=== PATIENT | female | born 1965 | race Caucasian/White ===

== ENCOUNTER → 2016-08-02 | Outpatient (CLI) | payer BC ==
[~2016-08-02] MED LIST: ALOE25CA4 PO; ANAS1TAB19 PO; ATEN25TA PO; BIOT1CAP8 PO; BIOT1TAB5 PO; CINN1CAP2 PO; CRAN1CAP6 PO; FLUT50SP37 NAE; FLUTICASONE PROP; GLUCTAB7 PO; LEVO100T7 PO; LISI-789 PO; LUTE6TAB PO; Levoxyl PO; MAGN400T6 PO; MULT-506 PO; MULT-655 PO; PROB1TAB16 PO; RESV100C PO; SPIR50TA2 PO; TAMO20TA9 PO; [UNRECOGNIZED DRUG - OTHER] PO; [UNRECOGNIZED DRUG - OTHER] PO; [UNRECOGNIZED DRUG - OTHER] PO
[2016-08-02 14:51] VITALS: BP 110/78; PULSE 68; TEMP 37.1; O2SAT 96
--- NOTE | 2016-08-02 16:09 | Radiation Oncology Follow-Up ---
Radiation Oncology Follow-Up Date of Visit August 02, 2016. (Melia Gregory PA-C) Reason For Visit One-month follow-up and cancer survivorship care plan (Melia Gregory PA-C) Radiation Completion Date 07/02/16 (Melia Gregory PA-C) Diagnosis (1) DCIS (ductal carcinoma in situ) of breast Onset Date: 02/10/2016 Stage: 0 Permanent Comment: Status post abnormal right breast mammogram 01/20/2016 Status post stereotactic guided biopsies 02/10/2016 2 lesions were biopsied and positive for DCIS Estrogen receptor positive and progesterone receptor positive Status post lumpectomies and sentinel lymph node biopsy 02/15/2016 Multifocal DCIS Stage pTis [id number] Status post completion of radiation therapy 07/02/2016 received 6640 cGy Last Edited By: Melia Gregory on Jul 12, 2016 10:33 (Melia Gregory PA-C) History of Present Illness Ms. Martinez is a 51-year-old postmenopausal female who initially presented with an abnormal mammogram on 01/20/2016 which revealed a cluster of calcifications in the right breast. The patient was brought back on 02/01/2016 for a unilateral right diagnostic mammogram and ultrasound which revealed a new irregular 8.7 mm cluster of pleomorphic an amorphous cluster of microcalcifications in the 9:00 middle one third of the right breast and a smaller appearing cluster of microcalcifications just inferior and medial to the first measuring 3.6 mm. At the time of the procedure and studies, the radiologist didn't note the patient did have a raised lesion along the scar at the 10:00 right breast and was referred to a shipping technician appropriately. The patient underwent stereotactic guided biopsies of the 2 lesions in the right breast on 02/10/2016. The larger right lesion was positive for ductal carcinoma in situ that was high-grade with comedonecrosis and was estrogen receptor positive and progesterone receptor positive. The smaller right breast lesion was also positive for ductal carcinoma in situ that was high-grade with comedonecrosis and was also estrogen receptor positive and progesterone receptor positive. The patient was referred The patient was referred to Dr. Kellee Monteiro who did discuss treatment options including a mastectomy and lumpectomy followed by adjuvant radiation therapy. The patient was also seen by reconstructive surgeon for consideration of bilateral breast reduction surgery however she ultimately declined this procedure. The patient elected for a lumpectomy and sentinel lymph node biopsy for both breast lesions in the right breast. The patient underwent 2 lumpectomies and sentinel lymph node biopsy of the right breast on 03/16/[address] Kellee Monteiro. Pathology revealed multifocal ductal carcinoma in situ that was high-grade with comedonecrosis. Margins were negative (full pathology report below). The sentinel lymph nodes were also negative. The patient has been seen in consultation by Dr. Jake Mace from medical oncology who has recommended consideration of anti-hormonal therapy. We are now seeing the patient in consultation discussed role of adjuvant radiation therapy. Patient was treated with conventional radiation therapy. Treatment was completed 07/02/2016. She received 6640 cGy. Overall, the patient is to well and has healed up well from surgery. Of note, the patient did have a diagnosis of low-grade and early stage endometrial cancer that was treated with a SHEMAR/BSO and no adjuvant therapy. (Melia Gregory PA-C) Interim History She's been doing well over this past month. The irritation of the skin has steadily improved. This mainly healed the 2 weeks following the completion of treatment. She has no occasional discomfort of the breast. She describes it as a "twinge". She has noted no masses or tenderness and no change of the axilla. She's had no swelling of her arm. She has seen Dr. Monteiro and is scheduled for mammography August 23. She has started tamoxifen and is tolerating this well. Following the completion of treatment she had symptoms of upper respiratory infection. These have steadily improved. The swelling of the breast that occurred during treatment has continued to improve as well as the darkness of the skin. (Melia Gregory PA-C) Allergies Coded Allergies: No Known Drug Allergy (Verified Allergy, Unknown, None , 04/17/16) Home Medications Scheduled Aloe Vera (Aloe Vera), 1 CAP PO DAILY Atenolol (Tenormin), 12.5 MG PO DAILY Biotin (Biotin), 4-8 TABS PO DAILY Cinnamon (Cinnamon), 350 MG PO DAILY Cranberry (Vaccinium Macrocarp (Cranberry), 1 CAP PO DAILY Udenijschqx-Uvydhuzmymv-Fua C- (Glucosamine Chondroitin), 1 TAB PO DAILY Lutein-Zeaxanthin (Lutein W/Zeaxanthin), 1 TAB PO DAILY Magnesium Oxide (Mag-Ox), 250 MG PO DAILY Multiple Vitamins W/ Minerals (Antioxidant), 1 CAP PO Q2D Multivitamin (Multivitamin), 1 TAB PO DAILY Probiotic Product (Probiotic), 1 TAB PO Evening Resveratrol (Resveratrol), 1 CAP PO DAILY Spironolactone (Aldactone), 50 MG PO BID Tamoxifen (Nolvadex), 20 MG PO DAILY [Circulation support], 2 TABS PO DAILY [Immune factors], 1 CAP PO DAILY [Levoxyl ], 100 MCG PO DAILY Scheduled PRN [Digest assure], 1 TAB PO DAILY PRN for Dyspepsia [Fluticasone Prop], 50 MCG NA BID PRN for allergies Review of Systems Gastrointestinal: Symptoms: WNL Oral: Symptoms: No Problems Respiratory: Symptoms: WNL Urinary: Symptoms: WNL Skin: Other Skin Symptoms: Skin on right breast more urbina in color w/pinkness near areola;intact Breast: Right Upper Arm Measurement: 43.5 Right Mid Arm Measurement: 31.5 Right Wrist Measurement: 18.0 Left Upper Arm Measurement: 45.0 Left Mid Arm Measurement: 33.0 Left Wrist Measurement: 18.3 Arm Dominence: Right Additional Notes: She completed a distress management report and answered "no" to all questions. (Melia Gregory PA-C) Physical Exam Vital Signs Date Time Temp Pulse Resp B/P Pulse Ox O2 Delivery O2 Flow Rate FiO2 08/02/16 14:51 37.1 68 12 110/78 96 Fatigue: None General Appearance: no apparent distress Eyes: normal inspection, EOMI ENT: normal ENT inspection, hearing grossly normal Neck: no adenopathy, thyroid normal Respiratory/Chest: lungs clear, no respiratory distress, no accessory muscle use Breast: Breast examination reveals well-healed incisions of the right breast. There is resolving hyperpigmentation. Resolving erythema. The edema has greatly improved. There are no masses or tenderness and no axillary adenopathy. Using the Kap[place]i score cosmesis she has a a fair outcome currently. There are no skin retractions or nipple changes. The left breast showed no masses or tenderness and no axillary adenopathy. Cardiovascular: regular rate, rhythm, no gallop, no murmur Extremities: no pedal edema Neurologic/Psychiatric: no motor/sensory deficits, alert, normal mood/affect Skin: warm/dry (Melia Gregory PA-C) Assessment & Plan Plan: Continue regular follow-up with Dr. Monteiro, Dr. Mace, and her primary care provider. She continues on the tamoxifen. Mammography is scheduled for August 23. She has a follow-up appointment scheduled with Dr. Monteiro. She'll continue to use moisturizers to the skin. Today we completed a cancer survivorship care plan. A copy of the document was given to the patient. We discussed that the hyperpigmentation and mild edema will continue to improve. She was seen and examined by Dr. Grace. We asked her to return to our office in 6 months. She may call if she has any questions or concerns in the interim. (Melia Gregory PA-C) I agree with note created by Melia Gregory PA-C. I reviewed the patient's chart and information with her. I have examined and evaluated the patient. I reviewed relevant clinical information and answered the patient's and/or family' s questions. (Veeral. Grace MD) Total Time In Follow-Up I spent 20 minutes speaking to the patient and performing examination. I spent 20 minutes reviewing information, preparing the survivorship document, and completing this note. (Melia Gregory PA-C) I spent 15 minutes examining and counseling the patient. (Veeral. Grace MD) Copy To Kellee Monteiro MD; Jake Mace MD; Shawna Malone Problem Qualifiers (1) DCIS (ductal carcinoma in situ) of breast: Laterality: right Qualified Codes: D05.11 - Intraductal carcinoma in situ of right breast
== END | disposition home or self-care (01) ==
LOC: C.ONC 14:48
PROVIDERS: ATTEND Physician Assistant Medical
DX: Z08 Encounter for follow-up examination after completed treatment for malignant neoplasm (principal); Z92.3 Personal history of irradiation; Z85.3 Personal history of malignant neoplasm of breast

== ENCOUNTER → 2016-08-23 | Outpatient (CLI) | payer BC ==
--- NOTE | 2016-08-23 12:55 | MAMMOGRAPHY REPORT ---
UNILATERAL RIGHT DIGITAL DIAGNOSTIC MAMMOGRAM TOMOSYNTHESIS WITH CAD: 08/23/2016 CLINICAL HISTORY: 51-year-old woman with a personal history of right breast DCIS status post lumpecto my and radiation. She presents for first follow-up in the right breast after treatment to establish a baseline. TECHNIQUE: Right CC and MLO 2-D digital and tomosynthesis images, repeat 2-D right MLO, right XCCL a nd spot magnification right CC and ML views were obtained. Current study was also evaluated with a C [employer] CMOS Sensorsuter Aided Detection (CAD) system. COMPARISON: Comparison is made to exams dated: 02/10/2016 stereotactic biopsy, 02/10/2016 stereotact ic biopsy, 02/10/2016 mammogram, 02/01/2016 ultrasound, 02/01/2016 mammogram, and 01/20/2016 mammogram - [facility]. BREAST COMPOSITION: There are scattered areas of fibroglandular density in the right breast. FINDINGS: There is mild diffuse skin thickening and trabecular edema of the right breast. Focal asy mmetry and expected architectural distortion in the upper outer middle one third of the right breast, at the site of prior lumpectomy. There are stable circumscribed subcentimeter masses in the upper o uter posterior right breast, unchanged on prior exams dating back to at least 2008, most likely intra mammary lymph nodes. There are scattered round benign-appearing microcalcifications throughout the r ight breast, which are stable compared to prior mammograms. No new suspicious grouping or cluster of microcalcifications are identified. No suspicious mass or unexpected architectural distortion. IMPRESSION: ACR-BI-RADS CATEGORY 3: PROBABLY BENIGN Expected post treatment changes in the right breast, without definite mammographic evidence of malign jacqueline. Recommend a short interval follow-up (6 months) diagnostic right mammogram and repeat spot mag nification views to ensure stability after treatment. Annual left mammography will be due at that ti ia. These results and recommendations were discussed with the patient at the time of the exam. Approximately 10% of breast cancers are not detected with mammography. A negative mammographic report should not delay biopsy if a clinically suggestive mass is present. Luisa Hameed M.D. ay/:08/23/2016 09:46:49 [employer]ocket Engine Component Mechanic: Carly Jiang RT(R)(M), [facility] letter sent: Follow Up Recommended 3 BI-RADS Code: ACR-BI-RADS Category 3: Probably Benign
== END | disposition home or self-care (01) ==
LOC: C.MAMM 09:14
PROVIDERS: ATTEND Surgery
DX: D05.11 Intraductal carcinoma in situ of right breast (principal); Z92.3 Personal history of irradiation

== ENCOUNTER → 2016-11-02 | Outpatient (CLI) | payer BC ==
[~2016-11-02] MED LIST changes: +TAMO20TA47 PO; -TAMO20TA9 PO
--- NOTE | 2016-11-08 14:09 | CODING QUERY MEDICAL NECESSITY ---
CQSUPPORTING DIAGNOSIS NEEDED A supporting diagnosis is required for the test/procedure performed on this patient in order for us to be reimbursed by the patient's insurance. Please provide a supporting diagnosis for the following test/procedure listed below next to the test name along with your signature. *If there is no additional diagnosis for this patient that would support the following test/procedure please document that below next to the test/procedure. Test(s)/Procedure(s) that require a supporting diagnosis: DOS 11/02/16 VITAMIN D TEST Provider Signature: Date: Thank you Aileen Lewis Health Information Management Once completed, please kindly fax back to [phone] For questions please call [phone]
== END | disposition home or self-care (01) ==
LOC: C.LAB1850 11:30
PROVIDERS: ATTEND Dermatology
DX: L65.9 Nonscarring hair loss, unspecified (principal)

== ENCOUNTER → 2016-11-16 | Outpatient (CLI) | payer BC ==
--- NOTE | 2016-11-16 15:44 | DIAGNOSTIC IMAGING REPORT ---
BILATERAL LOWER EXTREMITY VENOUS DOPPLER CLINICAL HISTORY: Bilateral leg pain and cramps. COMPARISON STUDY: No previous studies for comparison. TECHNIQUE: Sonography of the deep venous system of the bilateral lower extremities was performed. Compression and augmentation were evaluated. FINDINGS: The bilateral common femoral, superficial femoral and popliteal veins were compressible. Augmentation was normal. Flow was shown within the deep calf vessels. IMPRESSION: No evidence of deep venous thrombus within the bilateral lower extremities. Electronically signed by: Killian Ervin M.D. 11/16/2016 3:42 PM Dictated Date/Time: 11/16/2016 3:42 PM
== END | disposition home or self-care (01) ==
LOC: C.ULTR 14:35
PROVIDERS: ATTEND Internal Medicine Hematology & Oncology
DX: D05.11 Intraductal carcinoma in situ of right breast (principal); R25.2 Cramp and spasm

== ENCOUNTER → 2017-01-07 | Day surgery (SDC) | payer BC ==
[2016-12-28 10:21] VITALS: Ht 160 cm; Wt 122.7 kg
[~2017-01-07] VITALS: Ht 160 cm; Wt 122.7 kg
[~2017-01-07] MED LIST changes: -ALOE25CA4 PO; -ATEN25TA PO; +ATROPINE SULFATE 0.1 MG/ML 5ML SYR IV PRN; -BIOT1TAB5 PO; +EpHEDrine SULFATE INJ 50 MG/ML AMP IV PRN; -FLUTICASONE PROP; +LABETALOL HCL IV 5 MG/ML 20ML IV ONE; +LIDOCAINE HCL 2% 2 ML VIAL (20MG/ML) ONE; -Levoxyl PO; -PROB1TAB16 PO; +PROPOFOL IV EMULSION 10 MG/ML 20 ML VIAL IV ONE; -RESV100C PO; +SODIUM CHLORIDE 0.9% 500ML 500 ML IV ONE; -TAMO20TA47 PO
--- NOTE | 2017-01-07 12:59 | Endo History and Physical ---
History & Physical Date of Service: Jan 07, 2017. Chief Complaint: Family hx rectal CA Referring Physician: Dr Kayy So History of Present Illness screening colon Past Surgical History Hx Cardiac Surgery: No Hx Internal Defibrillator: No Hx Pacemaker: No Hx Abdominal Surgery: No Hx of Implantable Prosthesis: No Hx Post-Op Nausea and Vomiting: No Hx Cancer Surgery: Yes (RT LUMPECTOMY, TAHBSO) Hx Thoracic Surgery: No Hx Orthopedic: No Hx Urinary Tract Surgery: No Family History Colon CA Social History Smoking Status: Never Smoker Hx Substance Use: No Hx Alcohol Use: Yes (RARELY) Allergies Coded Allergies: NO KNOWN DRUG ALLERGIES (Verified Allergy, Unknown, ., 01/07/17) Current Medications Reported Home Medications Medications Dose Route/Sig Max Daily Dose Days Date Category Clarispray (Fluticasone Propionate (Nasal)) 50 Mcg/Act Spr 2 [place] ARETHA BID PRN 12/28/16 Reported Aldactone (Spironolactone) 50 Mg Tab 50 Mg PO QAM 12/28/16 Reported Arimidex (Anastrozole) 1 Mg Tab 1 Mg PO QAM 12/28/16 Reported Levothyroxine Sodium 100 Mcg Tab 1 Tab PO QAM 90 12/28/16 Reported Biotin 1 Mg Cap 1 Cap PO BID 12/28/16 Reported Zestril (Lisinopril) 2.5 Mg Tab 1 Tab PO QAM 12/28/16 Reported Lutein W/Zeaxanthin (Lutein-Zeaxanthin) 1 Tab Tab 1 Tab PO DAILY 08/02/16 Reported [Immune factors] 1 Cap PO DAILY 08/02/16 Reported [Digest assure] 1 Tab PO DAILY PRN 08/02/16 Reported [Circulation support] 2 Tabs PO DAILY 08/02/16 Reported Glucosamine Chondroitin (Kvvxhngcrqm-Tdzpzhtdcqi-Nwb C-) 1 Tab Tab 1 Tab PO DAILY 08/02/16 Reported Antioxidant (Multiple Vitamins W/ Minerals) 1 Cap Cap 1 Cap PO Q2D 06/25/16 Reported Cinnamon 500 Mg Cap 350 Mg PO DAILY 04/17/16 Reported Cranberry (Cranberry (Vaccinium Macrocarp) 250 Mg Cap 1 Cap PO DAILY 04/17/16 Reported Mag-Ox (Magnesium Oxide) 400 Mg Tab 250 Mg PO DAILY 04/17/16 Reported Multivitamin (Multivitamins) Tab 1 Tab PO DAILY 04/17/16 Reported Vital Signs Weight (Kilograms): 122.73 Height (Feet): 5 Height (Inches): 3 Date Time Temp Pulse Resp B/P (MAP) Pulse Ox O2 Delivery O2 Flow Rate FiO2 01/07/17 12:35 37.3 98 20 230/94 (139) 97 Room Air 242/102 (148) Physical Exam General Appearance: WD/WN, no apparent distress Respiratory/Chest: Auscultation: breath sounds normal Cardiovascular: Heart Auscultation: RRR Abdomen: Bowel Sounds: normal Inspection & Palpation: soft, non-distended, no tenderness, guarding & rebound +FH CRC Assessment and Plan colonscopy for screening
--- NOTE | 2017-01-07 13:42 | GI REPORT ---
Procedure Date: 01/07/2017 12:51 PM Procedure: Colonoscopy Indications: Family history of colon cancer in multiple first-degree relatives Medicines: Propofol per Anesthesia Complications: No immediate complications. Estimated blood loss: Minimal. Estimated Blood Loss: Estimated blood loss was minimal. Procedure: Pre-Anesthesia Assessment: - Prior to the procedure, a History and Physical was performed, and patient medications and allergies were reviewed. The patient's tolerance of previous anesthesia was also reviewed. The risks and benefits of the procedure and the sedation options and risks were discussed with the patient. All questions were answered, and informed consent was obtained. Prior Anticoagulants: The patient has taken no previous anticoagulant or antiplatelet agents. ASA Grade Assessment: III - A patient with severe systemic disease. After reviewing the risks and benefits, the patient was deemed in satisfactory condition to undergo the procedure. After I obtained informed consent, the scope was passed under direct vision. Throughout the procedure, the patient's blood pressure, pulse, and oxygen saturations were monitored continuously. The scope was introduced through the anus and advanced to the cecum, identified by appendiceal orifice and ileocecal valve. The colonoscopy was performed without difficulty. The patient tolerated the procedure well. The quality of the bowel preparation was good. Findings: The perianal and digital rectal examinations were normal. Pertinent negatives include normal sphincter tone, no palpable rectal lesions and no anal lesion or abnormality was detected. A 2 mm polyp was found in the ascending colon. The polyp was sessile. The polyp was removed with a cold biopsy forceps. Resection and retrieval were complete. Estimated blood loss was minimal. Verification of patient identification for the specimen was done by the physician and sterile instrument technician using the patient's name and medical record number. A few small-mouthed diverticula were found in the sigmoid colon. The exam was otherwise without abnormality. The retroflexed view of the distal rectum and anal verge was normal and showed no anal or rectal abnormalities. Impression: - One 2 mm polyp in the ascending colon, removed with a cold biopsy forceps. Resected and retrieved. - Diverticulosis in the sigmoid colon. - The examination was otherwise normal. - The distal rectum and anal verge are normal on retroflexion view. Recommendation: - Discharge patient to home (ambulatory). - Resume regular diet. - Continue present medications. - Await pathology results. - Repeat colonoscopy for surveillance based on pathology results. - Return to referring physician as previously scheduled. MD Ismael Ronquillo, MD 01/07/2017 1:42:00 PM This report has been signed electronically. Note Initiated On: 01/07/2017 12:51 PM I attest to the content of the Intraoperative Record and orders documented therein, exceptions below
--- NOTE | 2017-01-07 13:47 | Discharge Instructions ---
Endoscopy Patient Instructions Date / Procedure(s) Performed Jan 07, 2017. Colonoscopy Allergy Information Coded Allergies: NO KNOWN DRUG ALLERGIES (Verified Allergy, Unknown, ., 01/07/17) Discharge Date / Findings Jan 07, 2017. small polyp removed; diverticulosis sigmoid Medication Instructions Restart Stopped Medication(s): Reported Home Medications Medications Dose Route/Sig Max Daily Dose Days Date Category Clarispray (Fluticasone Propionate (Nasal)) 50 Mcg/Act Spr 2 [place] ARETHA BID PRN 12/28/16 Reported Aldactone (Spironolactone) 50 Mg Tab 50 Mg PO QAM 12/28/16 Reported Arimidex (Anastrozole) 1 Mg Tab 1 Mg PO QAM 12/28/16 Reported Levothyroxine Sodium 100 Mcg Tab 1 Tab PO QAM 90 12/28/16 Reported Biotin 1 Mg Cap 1 Cap PO BID 12/28/16 Reported Zestril (Lisinopril) 2.5 Mg Tab 1 Tab PO QAM 12/28/16 Reported Lutein W/Zeaxanthin (Lutein-Zeaxanthin) 1 Tab Tab 1 Tab PO DAILY 08/02/16 Reported [Immune factors] 1 Cap PO DAILY 08/02/16 Reported [Digest assure] 1 Tab PO DAILY PRN 08/02/16 Reported [Circulation support] 2 Tabs PO DAILY 08/02/16 Reported Glucosamine Chondroitin (Bouxszurtkp-Oveshngjfjr-Bdq C-) 1 Tab Tab 1 Tab PO DAILY 08/02/16 Reported Antioxidant (Multiple Vitamins W/ Minerals) 1 Cap Cap 1 Cap PO Q2D 06/25/16 Reported Cinnamon 500 Mg Cap 350 Mg PO DAILY 04/17/16 Reported Cranberry (Cranberry (Vaccinium Macrocarp) 250 Mg Cap 1 Cap PO DAILY 04/17/16 Reported Mag-Ox (Magnesium Oxide) 400 Mg Tab 250 Mg PO DAILY 04/17/16 Reported Multivitamin (Multivitamins) Tab 1 Tab PO DAILY 04/17/16 Reported Reported Home Medications Medications Dose Route/Sig Max Daily Dose Days Date Category Clarispray (Fluticasone Propionate (Nasal)) 50 Mcg/Act Spr 2 [place] ARETHA BID PRN 12/28/16 Reported Aldactone (Spironolactone) 50 Mg Tab 50 Mg PO QAM 12/28/16 Reported Arimidex (Anastrozole) 1 Mg Tab 1 Mg PO QAM 12/28/16 Reported Levothyroxine Sodium 100 Mcg Tab 1 Tab PO QAM 90 12/28/16 Reported Biotin 1 Mg Cap 1 Cap PO BID 12/28/16 Reported Zestril (Lisinopril) 2.5 Mg Tab 1 Tab PO QAM 12/28/16 Reported Lutein W/Zeaxanthin (Lutein-Zeaxanthin) 1 Tab Tab 1 Tab PO DAILY 08/02/16 Reported [Immune factors] 1 Cap PO DAILY 08/02/16 Reported [Digest assure] 1 Tab PO DAILY PRN 08/02/16 Reported [Circulation support] 2 Tabs PO DAILY 08/02/16 Reported Glucosamine Chondroitin (Sqbaxiuvyax-Iahavacgsjm-Kbs C-) 1 Tab Tab 1 Tab PO DAILY 08/02/16 Reported Antioxidant (Multiple Vitamins W/ Minerals) 1 Cap Cap 1 Cap PO Q2D 06/25/16 Reported Cinnamon 500 Mg Cap 350 Mg PO DAILY 04/17/16 Reported Cranberry (Cranberry (Vaccinium Macrocarp) 250 Mg Cap 1 Cap PO DAILY 04/17/16 Reported Mag-Ox (Magnesium Oxide) 400 Mg Tab 250 Mg PO DAILY 04/17/16 Reported Multivitamin (Multivitamins) Tab 1 Tab PO DAILY 04/17/16 Reported Provider Instructions Activity Restrictions - No exercising or heavy lifting for 24 hours. - Do not drink alcohol the day of the procedure. - Do not drive a car or operate machinery until the day after the procedure. - Do not make any important decisions or sign important papers in 24 hours after the procedure. Following Day: - Return to full activity which may include returning to work/school. Diet Start your diet with liquids and light foods (jello, soup, juice, toast). Then eat your usual diet if not nauseated. Treatment For Common After Affects For mild abdominal pain, bloating, or excessive gas: - Rest - Eat lightly - Lie on right side Follow-Up Information Follow-up with Dr Kayy So as scheduled Anesthesia Information What You Should Know You have had a procedure that required some medicine to reduce anxiety and discomfort. This treatment is called moderate sedation. After receiving the treatment, you may be sleepy, but you will be able to breathe on your own. The effects of the treatment may last for several hours. Follow these instructions along with Activity/Diet recommendations noted above: * Do NOT do anything where dizziness or clumsiness would be dangerous. * Rest quietly at home today, then you can be up and about tomorrow. * Have a responsible person stay with you the rest of today. * You may have had an I.V. today. If so, you may take the dressing off later today. Recommendations Call your doctor if: * Trouble breathing * Continuous vomiting for more than 24 hours * Temperature above 101 degrees * Severe abdominal pain or bloating * Pain not relieved by pain medicine ordered * There is increased drainage or redness from any incision * A large amount of rectal bleeding greater than 2-3 tablespoons. (If you had a polyp/s removed or have hemorrhoids, a small amount of blood - from the rectum is to be expected.) * You have any unanswered questions or concerns. IN THE EVENT OF A SERIOUS EMERGENCY, GO TO THE NEAREST EMERGENCY ROOM Your discharge instructions were prepared by provider Ismael Barnett. Patient Instructions Signature Page Odalys Martinez Patient (or Guardian) Signature/Date: I have read and understand the instructions given to me by my caregivers. Caregiver/RN/Doctor Signature/Date: The above-named patient and/or guardian has received patient instructions on this date. + Original Patient Signature Page (only) stays with chart. Please make copy for patient.
[2017-01-07 14:00] VITALS: BP 154/96; PULSE 67; O2SAT 97
--- NOTE | 2017-01-07 14:10 | Anesthesiology Progress Note ---
Anesthesia Post Op Note Date & Time Jan 07, 2017 at 14:10 Vital Signs Pain Intensity: 0 Vital Signs Past 12 Hours Date Time Temp Pulse Resp B/P (MAP) Pulse Ox O2 Delivery O2 Flow Rate FiO2 01/07/17 14:00 67 18 154/96 (115) 97 Room Air 01/07/17 13:45 63 18 145/92 (109) 97 Room Air 01/07/17 13:30 69 18 124/83 (97) 97 Room Air 01/07/17 12:35 37.3 98 20 230/94 (139) 97 Room Air 242/102 (148) Notes Mental Status: alert / awake / arousable, participated in evaluation Pt Amnestic to Procedure: Yes Nausea / Vomiting: adequately controlled Pain: adequately controlled Airway Patency, RR, SpO2: stable & adequate BP & HR: stable & adequate Hydration State: stable & adequate Anesthetic Complications: no major complications apparent
== END | disposition home or self-care (01) ==
LOC: C.GI 12:12
PROVIDERS: ATTEND Internal Medicine Gastroenterology
DX: Z12.11 Encounter for screening for malignant neoplasm of colon (principal); D12.2 Benign neoplasm of ascending colon; K57.30 Diverticulosis of large intestine without perforation or abscess without bleeding; Z80.0 Family history of malignant neoplasm of digestive organs; Z79.899 Other long term (current) drug therapy

== ENCOUNTER → 2017-02-05 | Outpatient (CLI) | payer BC ==
[~2017-02-05] MED LIST changes: -ATROPINE SULFATE 0.1 MG/ML 5ML SYR IV PRN; -EpHEDrine SULFATE INJ 50 MG/ML AMP IV PRN; -LABETALOL HCL IV 5 MG/ML 20ML IV ONE; -LIDOCAINE HCL 2% 2 ML VIAL (20MG/ML) ONE; -PROPOFOL IV EMULSION 10 MG/ML 20 ML VIAL IV ONE; -SODIUM CHLORIDE 0.9% 500ML 500 ML IV ONE
[2017-02-05 14:56] VITALS: BP 148/80; PULSE 96; TEMP 36.7; O2SAT 99
--- NOTE | 2017-02-05 15:49 | Radiation Oncology Follow-Up ---
Radiation Oncology Follow-Up Date of Visit Feb 05, 2017. Reason For Visit 6 month follow-up Radiation Completion Date 07/02/16 Diagnosis (1) DCIS (ductal carcinoma in situ) of breast Onset Date: 02/10/2016 Stage: 0 Permanent Comment: Status post abnormal right breast mammogram 01/20/2016 Status post stereotactic guided biopsies 02/10/2016 2 lesions were biopsied and positive for DCIS Estrogen receptor positive and progesterone receptor positive Status post lumpectomies and sentinel lymph node biopsy 02/15/2016 Multifocal DCIS Stage pTis [id number] Status post completion of radiation therapy 07/02/2016 received 6640 cGy Last Edited By: Melia Gregory on Jul 12, 2016 10:33 History of Present Illness Ms. Martinez is postmenopausal female who initially presented with an abnormal mammogram on 01/20/2016 which revealed a cluster of calcifications in the right breast. The patient was brought back on 02/01/2016 for a unilateral right diagnostic mammogram and ultrasound which revealed a new irregular 8.7 mm cluster of pleomorphic an amorphous cluster of microcalcifications in the 9:00 middle one third of the right breast and a smaller appearing cluster of microcalcifications just inferior and medial to the first measuring 3.6 mm. At the time of the procedure and studies, the radiologist didn't note the patient did have a raised lesion along the scar at the 10:00 right breast and was referred to a drapery inspector appropriately. The patient underwent stereotactic guided biopsies of the 2 lesions in the right breast on 02/10/2016. The larger right lesion was positive for ductal carcinoma in situ that was high- grade with comedonecrosis and was estrogen receptor positive and progesterone receptor positive. The smaller right breast lesion was also positive for ductal carcinoma in situ that was high-grade with comedonecrosis and was also estrogen receptor positive and progesterone receptor positive. The patient was referred The patient was referred to Dr. Kellee Monteiro who did discuss treatment options including a mastectomy and lumpectomy followed by adjuvant radiation therapy. The patient was also seen by reconstructive surgeon for consideration of bilateral breast reduction surgery however she ultimately declined this procedure. The patient elected for a lumpectomy and sentinel lymph node biopsy for both breast lesions in the right breast. The patient underwent 2 lumpectomies and sentinel lymph node biopsy of the right breast on 03/16/[address] Kellee Monteiro. Pathology revealed multifocal ductal carcinoma in situ that was high-grade with comedonecrosis. Margins were negative (full pathology report below). The sentinel lymph nodes were also negative. The patient has been seen in consultation by Dr. Jake Mace from medical oncology who has recommended consideration of anti-hormonal therapy. We are now seeing the patient in consultation discussed role of adjuvant radiation therapy. Patient was treated with conventional radiation therapy. Treatment was completed 07/02/2016. She received 6640 cGy. Overall, the patient is to well and has healed up well from surgery. Of note, the patient did have a diagnosis of low-grade and early stage endometrial cancer that was treated with a SHEMAR/BSO and no adjuvant therapy. Interim History She's been doing well over the past 6 months. The discoloration of the breast has steadily improved. She also feels there is less swelling over time. She has very minimal occasional twinge in the breast. She continues to use skin moisturizer. She denies a feeling of heaviness of the breast. She has noticed no masses or axillary adenopathy. She has noticed no swelling of her arm. She has been followed closely by medical oncology. She was prescribed tamoxifen. She unfortunately had multiple side effects including leg cramping, hair loss, feeling of warmth, insomnia, and constipation. Because of the cramping in the calves she did have an ultrasound to rule out a DVT. That was negative for findings. She also had joint pain and discomfort. She stopped the medication for a 2 month time. She did see Dr. Mace in started anastrozole earlier this summer. She's been able to tolerate the medicine and she is continued to take it. Allergies Coded Allergies: NO KNOWN DRUG ALLERGIES (Verified Allergy, Unknown, ., 01/07/17) Home Medications Scheduled Anastrozole (Arimidex), 1 MG PO QAM Biotin (Biotin), 1 CAP PO BID Cinnamon (Cinnamon), 350 MG PO DAILY Cranberry (Vaccinium Macrocarp (Cranberry), 1 CAP PO DAILY Uaqxvkgoyto-Elrpohbqfcr-Qdv C- (Glucosamine Chondroitin), 1 TAB PO DAILY Levothyroxine Sodium (Levothyroxine Sodium), 1 TAB PO QAM Lisinopril (Zestril), 1 TAB PO QAM Lutein-Zeaxanthin (Lutein W/Zeaxanthin), 1 TAB PO DAILY Magnesium Oxide (Mag-Ox), 250 MG PO DAILY Multiple Vitamins W/ Minerals (Antioxidant), 1 CAP PO Q2D Multivitamin (Multivitamin), 1 TAB PO DAILY Spironolactone (Aldactone), 50 MG PO QAM [Circulation support], 2 TABS PO DAILY [Immune factors], 1 CAP PO DAILY Scheduled PRN Fluticasone Propionate (Nasal) (Clarispray), 2 SPRAY ARETHA BID PRN for PRN [Digest assure], 1 TAB PO DAILY PRN for Dyspepsia Review of Systems Gastrointestinal: Symptoms: WNL Oral: Symptoms: No Problems Respiratory: Symptoms: WNL Other Respiratory: I cough sometimes I think from my lisinopril. Urinary: Symptoms: WNL Skin: Symptoms: No Problems Other Skin Symptoms: some brownish tint yet Breast: Right Upper Arm Measurement: 42.0 Right Mid Arm Measurement: 31.0 Right Wrist Measurement: 18.0 Left Upper Arm Measurement: 43.5 Left Mid Arm Measurement: 32.0 Left Wrist Measurement: 18.0 Arm Dominence: Right Physical Exam Vital Signs Date Time Temp Pulse Resp B/P (MAP) Pulse Ox O2 Delivery O2 Flow Rate FiO2 02/05/17 14:56 36.7 96 20 148/80 99 Fatigue: None General Appearance: no apparent distress Eyes: normal inspection, EOMI ENT: normal ENT inspection, hearing grossly normal Neck: no adenopathy, thyroid normal Respiratory/Chest: lungs clear, no respiratory distress, no accessory muscle use Breast: Large pendulous breasts. The right breast shows mild pink discoloration. There is mild edema. There are no masses or tenderness and no axillary adenopathy. She has no skin retractions or nipple changes. Using the [place] score cosmesis she has a good outcome. The left breast showed no masses or tenderness no axillary adenopathy. Cardiovascular: regular rate, rhythm, no gallop, no murmur Abdomen: non tender, soft Extremities: no pedal edema Neurologic/Psychiatric: no motor/sensory deficits, alert, normal mood/affect Skin: warm/dry Lymphatic: no adenopathy Pain Management Pain Duration: started Anastrazole this summer Side: Bilateral Pain Location: joints Patient Preferred Pain Scale: 0 - 10 Pain Description: Aching Laboratory Studies Test 01/22/17 10:35 Magnesium Level 2.1 mg/dl (1.8-2.4) 25-Hydroxy Vitamin D Total 36.6 ng/ml (30-100) Additional Studies Patient: JAGRUTI MARTINEZ [facility] Rec: [id number] Address1: [id number] Address2: Acct ID: [id number] Date: 1965 Sex: F Ref Phy: Estefany Sultana M.D. Att Phy: Kellee Monteiro MD Serena Phy: Shawna Malone Inter Phy: Luisa Hameed MD [facility] Zip: [place] [address] SC: [id number] Report #: [id number] Materials Assistant: UMA Diagnosis: RT DCIS Service Date: 08/23/16 MNE: [id number] Ordering Dr: Kellee Monteiro MD CC: Kellee Monteiro MD CONF: DICTATED BY: Luisa Hameed MD MAMMOGRAPHY REPORT UNILATERAL RIGHT DIGITAL DIAGNOSTIC MAMMOGRAM TOMOSYNTHESIS WITH CAD: 08/23/2016 CLINICAL HISTORY: 51-year-old woman with a personal history of right breast DCIS status post lumpectomy and radiation. She presents for first follow-up in the right breast after treatment to establish a baseline. TECHNIQUE: Right CC and MLO 2-D digital and tomosynthesis images, repeat 2-D right MLO, right XCCL and spot magnification right CC and ML views were obtained. Current study was also evaluated with a Computer Aided Detection (CAD ) system. COMPARISON: Comparison is made to exams dated: 02/10/2016 stereotactic biopsy, 02/10/2016 stereotactic biopsy, 02/10/2016 mammogram, 02/01/2016 ultrasound, 01/31 mammogram, and 01/20/2016 mammogram - [facility]. BREAST COMPOSITION: There are scattered areas of fibroglandular density in the right breast. FINDINGS: There is mild diffuse skin thickening and trabecular edema of the right breast. Focal asymmetry and expected architectural distortion in the upper outer middle one third of the right breast, at the site of prior lumpectomy. There are stable circumscribed subcentimeter masses in the upper outer posterior right breast, unchanged on prior exams dating back to at least 2008, most likely intramammary lymph nodes. There are scattered round benign- appearing microcalcifications throughout the right breast, which are stable compared to prior mammograms. No new suspicious grouping or cluster of microcalcifications are identified. No suspicious mass or unexpected architectural distortion. IMPRESSION: ACR-BI-RADS CATEGORY 3: PROBABLY BENIGN Expected post treatment changes in the right breast, without definite mammographic evidence of malignancy. Recommend a short interval follow-up (6 months) diagnostic right mammogram and repeat spot magnification views to ensure stability after treatment. Annual left mammography will be due at that time. These results and recommendations were discussed with the patient at the time of the exam. Approximately 10% of breast cancers are not detected with mammography. A negative mammographic report should not delay biopsy if a clinically suggestive mass is present. Luisa Hameed M.D. ay/:08/23/2016 09:46:49 Stem Roller: Carly PATEL(Lisa)([place]), [facility] letter sent: Follow Up Recommended 3 BI-RADS Code: ACR-BI-RADS Category 3: Probably Benign Dictated by: Luisa Hameed MD Signed by: Luisa Hameed MD Assessment & Plan Plan: Continue with scheduled mammography. She has a mammogram scheduled next month. Continue follow-up with Dr. Mace. She is continuing to take the anastrozole. She was seen and examined by Dr. Grace. She has a follow-up appointment with Dr. Monteiro on 03/07/2017. We asked her to return to our office in 1 year. She may call if she has any questions or concerns in the interim. Assessment & Plan (Attending) ADDENDUM: I agree with note created by Melia Gregory PA-C. I reviewed the patient's chart and information with her. I have examined and evaluated the patient. I reviewed relevant clinical information and answered the patient's and /or family's questions. PALS NURSE Total Time In Follow-Up I spent 20 minutes speaking to the patient and performing examination. I spent 15 minutes reviewing information and completing this note. Total Time (Attending) In Follow-Up I spent 15 minutes examining and counseling the patient. PALS NURSE Copy To Kellee Monteiro MD; Jake Mace MD; Yohn, Shawna C.R.N.P. Problem Qualifiers (1) DCIS (ductal carcinoma in situ) of breast: Laterality: right Qualified Codes: D05.11 - Intraductal carcinoma in situ of right breast
== END | disposition home or self-care (01) ==
LOC: C.ONC 14:42
PROVIDERS: ATTEND Physician Assistant Medical
DX: Z08 Encounter for follow-up examination after completed treatment for malignant neoplasm (principal); Z92.3 Personal history of irradiation; Z86.000 Personal history of in-situ neoplasm of breast

== ENCOUNTER → 2017-03-01 | Outpatient (CLI) | payer BC ==
--- NOTE | 2017-03-01 13:38 | MAMMOGRAPHY REPORT ---
BILATERAL DIGITAL DIAGNOSTIC MAMMOGRAM TOMOSYNTHESIS WITH CAD: 03/01/2017 CLINICAL HISTORY: History of right breast DCIS status post lumpectomy and radiation therapy. The pat ient has some residual tenderness and numbness in the right breast after surgery, which is improving. She denies any palpable lumps. TECHNIQUE: Breast tomosynthesis in addition to standard 2D mammography was performed. Current study was also evaluated with a Computer Aided Detection (CAD) system. Bilateral CC and MLO 2-D and tomosy nthesis images and spot magnification right cc and ML views were obtained. COMPARISON: Comparison is made to exams dated: 08/23/2016 mammogram, 02/10/2016 stereotactic biopsy, 1 04/11/2015 mammogram, 01/18/2015 mammogram, 01/15/2014 mammogram, and 01/13/2013 mammogram - [facility]. BREAST COMPOSITION: There are scattered areas of fibroglandular density in both breasts. FINDINGS: Again noted are post surgical changes in the right upper outer quadrant status post lumpect arlyn, including density and architectural distortion at the lumpectomy bed. A linear scar marker ella tessy a scar on the right upper outer breast. There is stable mild diffuse right breast skin thickenin g, secondary to radiation therapy. The remainder of both breasts are stable compared to prior exams, without suspicious masses, calcific ations, or areas of architectural distortion noted. Scattered bilateral punctate benign appearing ca lcifications are not significantly changed. IMPRESSION: ACR-BI-RADS CATEGORY 3: PROBABLY BENIGN Stable post treatment changes in the right breast, without mammographic evidence of malignancy in eit her breast. Recommend follow-up diagnostic tomosynthesis mammograms of the right breast in 6 months to reevaluate posttreatment changes. The patient has been verbally notified of the results. Approximately 10% of breast cancers are not detected with mammography. A negative mammographic report should not delay biopsy if a clinically suggestive mass is present. Tiff Hill M.D. /:03/01/2017 09:38:29 Analysis Director: Carly LOPEZ)([place]), [facility] letter sent: Personal History 3 BI-RADS Code: ACR-BI-RADS Category 3: Probably Benign
== END | disposition home or self-care (01) ==
LOC: C.MAMM 08:59
PROVIDERS: ATTEND Obstetrics & Gynecology
DX: Z98.890 Other specified postprocedural states (principal); Z92.3 Personal history of irradiation; Z86.000 Personal history of in-situ neoplasm of breast

== ENCOUNTER → 2017-05-31 | Outpatient (CLI) | payer OTHER | END | disposition home or self-care (01) | LOC: C.LAB1850 10:12 | PROVIDERS: ATTEND Dermatology | DX: E55.9 Vitamin D deficiency, unspecified (principal) ==